=== PATIENT | female | born 1980 | race Caucasian/White ===

== ENCOUNTER 2018-11-30 09:10 | Inpatient (IN) | payer BC ==
[~2018-11-30 09:10] MED LIST: CITRIC ACID/SODIUM CITRATE 30 ML UNIT-DOSE CUP PO ONE
[2018-11-30 09:49] VITALS: BMI 27.5
[2018-11-30] MEDS ORDERED: ELECTROLYTE-148 SOLN 1,000 ML IV ONE (10:00)
[2018-11-30] MEDS ORDERED: CITRIC ACID/SODIUM CITRATE 30 ML UNIT-DOSE CUP PO ONE (10:00)
[2018-11-30] MEDS ORDERED: ELECTROLYTE-148 SOLN 1,000 ML IV SCH ×3 (10:10→11:00)
--- NOTE | 2018-11-30 10:31 | HP ---
Past Medical History - Primary Care Physician PCP:: Sayda Velasco - Admission Chief Complaint: 38yo P 1 @ 40 wks with h/o Prior c/section x 1, with no contructions, no VB, no LOF, +FM, presents for Repeat c/section History of Present Illness: 1. Prior c/section for 4kg fetus with h/o GBS sepsis 2. ASCUS/HPV pos for Colposcopy post- 3. Smoked prior to 4. AMA - Materni 21 wnl - 46XX 5. Personal h/o Brain trauma, patient is poor historian and difficult to assertain full scope of the problem, but she is fully coherent and has full capacity making decisions 6. GBS pos prophylaxis in case of ROM 7. 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 @ [employer] History of Recent Travel: No Home Medications - Allergies Allergies/Adverse Reactions: Allergies Allergy/AdvReac Type Severity Reaction Status Date / Time No Known Allergies Allergy Verified 11/30/18 09:31 Family Disease History - Family Disease History Family Disease History: Other: Grandparent (MGF - Pancreatic CA, MGM - Stomach CA) Review of Systems - Review of Systems Constitutional: reports: No Symptoms Eyes: reports: No Symptoms HENT: reports: No Symptoms Neck: reports: No Symptoms Cardiovascular: reports: No Symptoms Respiratory: reports: No Symptoms Gastrointestinal: reports: No Symptoms Genitourinary: reports: No Symptoms Breasts: reports: No Symptoms Reported Musculoskeletal: reports: No Symptoms Integumentary: reports: No Symptoms Neurological: reports: No Symptoms Endocrine: reports: No Symptoms Hematology/Lymphatic: reports: No Symptoms Psychiatric: reports: No Symptoms Pain Intensity: 0 Physical Exam - Maternity Constitutional: Yes: Well Nourished - Labs Lab Results: AB pos/RI/RPR-nr/HBsAg-neg/HIV - neg/ GCT-104
[2018-11-30] MEDS: ELECTROLYTE-148 SOLN 1,000 ML IV SCH ×2 (10:45→10:52)
[2018-11-30] MEDS ORDERED: TUBERCULIN PPD 5 TU/0.1ML SYRINGE (IN PATIENT USE ONLY) ID ONE (11:00)
[2018-11-30] MEDS ORDERED: OXYTOCIN 20 UNITS in 0.9% NS 40 UNIT/2,000 ML INFUS.BAG IV ONE (11:15)
[2018-11-30 11:17] LABS: ALBUMIN 2.9 g/dl (3.4-5.0); BILIRUBIN,TOTAL 0.4 mg/dL (0.2-1); BLOOD UREA NITROGEN 11.8 mg/dL (7-18); CALCIUM 8.4 mg/dL (8.5-10.1); CREATININE 0.7 mg/dL (0.55-1.3); TOT PROT 6.2 g/dl (6.4-8.2)
[2018-11-30] MEDS ORDERED: morphine SULFATE/PF 0.5 MG/ML (2cc Syringe - QUVA) ONE (11:32)
[2018-11-30] MEDS ORDERED: ceFAZolin SODIUM 1 GM VIAL ONE (11:32)
[2018-11-30] MEDS ORDERED: PHENYLEPHRINE HCL 10 MG/1 ML SINGLE DOSE VIAL ONE (11:32)
[2018-11-30] MEDS ORDERED: DEXAMETHASONE SOD PHOSPHATE 4 MG/1 ML VIAL ONE (12:29)
[2018-11-30] MEDS ORDERED: MIDAZOLAM HCL 2 MG/2 ML SINGLE DOSE VIAL ONE (12:35)
[2018-11-30] MEDS ORDERED: KETOROLAC TROMETHAMINE 30 MG/1 ML VIAL ONE (12:46)
[2018-11-30 13:11] LABS: VENOUS PC02 48.4 mmHg (41-51)
[2018-11-30 13:14] LABS: ARTERIAL BLOOD GAS PCO2 61.9 mmHg (35-45); ARTERIAL BLOOD GAS pH 7.25 (7.35-7.45); VENOUS PH 7.31 (7.31-7.41); VENOUS PO2 19.5 mmHg (30-40)
[2018-11-30 13:15] LABS: ARTERIAL BLD GAS O2 SATURATION 5.1 % (95-98); ARTERIAL BLOOD GAS BASE EXCESS -2.3 meq/l (-2-2)
[2018-11-30 13:17] LABS: ARTERIAL BLOOD GAS PO2 8.2 mmHg (80-105)
[2018-11-30] MEDS ORDERED: oxyCODONE HCL 5 MG TABLET PO PRN (13:17)
[2018-11-30] MEDS ORDERED: BENZOCAINE 28 GM HEMORRHOIDAL OINTMENT PR PRN (13:17)
[2018-11-30] MEDS ORDERED: diphenhydrAMINE HCL 25 MG CAPSULE (FP) PO PRN (13:17)
[2018-11-30] MEDS ORDERED: WITCH HAZEL 50% (TUCKS) 40 PAD/JAR PAD TP PRN (13:17)
[2018-11-30] MEDS ORDERED: BENZOCAINE 20% 57 GM BOTTLE TP PRN (13:17)
[2018-11-30] MEDS ORDERED: IBUPROFEN 800 MG/8 ML IJ IVPB PRN (13:17)
[2018-11-30] MEDS ORDERED: METHYLERGONOVINE MALEATE 0.2 MG/1 ML AMP IM PRN (13:17)
--- NOTE | 2018-11-30 13:24 | OP ---
Operative Note - Note: Operative Date: 11/30/18 Pre-Operative Diagnosis: 38yo P1 at 40weeks with h/o prior c/section, no spontaneous labor Operation: Repeat c/section Findings: Normal Tubes and ovaries Viable Female, APGARs 9/9, Wt. 9.2lb Neonatology at delivery Post-Operative Diagnosis: Same as Pre-op Surgeon: Sayda Velasco Bariatric Physician: Jay Russell Anesthesiologist/COMPUTER ARCHITECT: Claudia Grady Anesthesia: Spinal Estimated Blood Loss (mls): 400 Drains, Volume Out (mls): 200 Fluid Volume Replaced (mls): 1,200 Operative Report Dictated: Yes
--- NOTE | 2018-11-30 13:25 | PN ---
Delivery - Delivery Section: Repeat Type of Anesthesia: Spinal Episiotomy/Laceration: None EBL (cc): 400 Delivery, Single - [place] Feeding Plan Initial Plan: Exclusive throughout hospitalization
[2018-11-30] MEDS ORDERED: ONDANSETRON 4 MG/2 ML VIAL IVPUSH PRN (13:30)
[2018-11-30] MEDS ORDERED: OXYTOCIN 20 UNITS in 0.9% NS 20 UNIT/1,000 ML INFUS.BAG IV SCH (13:30)
[2018-11-30] MEDS ORDERED: ACETAMINOPHEN 1000 MG/100 ML VIAL (NON FORMULARY) IVPB PRN (13:31)
--- NOTE | 2018-11-30 16:28 | OP ---
DATE OF OPERATION: 11/30/2018 PREOPERATIVE DIAGNOSIS: A 38-year-old, para 1, at 40 weeks, with history of prior section and no spontaneous labor. OPERATION: Repeat section. FINDINGS: Normal tubes and ovaries bilaterally, viable female, Apgars 9 and 9, weight 9 pounds 2 ounces. Neonatology present at delivery. PREOPERATIVE DIAGNOSIS: A 38-year-old, para 1, at 40 weeks, with history of prior section and no spontaneous labor. SURGEON: Sayda Velasco MD VENTURE CAPITAL ANALYST: Jay Russell MD ANESTHESIOLOGIST: Claudia Grady MD ANESTHESIA: Spinal. DESCRIPTION OF THE OPERATIVE PROCEDURE: After ensuring informed consent, patient was brought to the operating room, and after spinal anesthesia, she was placed in dorsal supine position with left lateral tilt. Abdomen was prepped and draped in a sterile fashion. A Pfannenstiel skin incision in the same area of the prior incision was created with a scalpel and carried down to the level of fascia with Bovie cautery. Fascia was dissected bilaterally with Bovie cautery, with good visualization of underlying muscle. The fascia was dissected off the underlying rectus abdominis with Bovie cautery, split in the midline, and the peritoneum was entered with the scalpel, with good visualization of underlying organs. The peritoneum was entered with Metzenbaum scissors and stretched. Bladder was retracted with low edge of the [place]. Vesicouterine peritoneum was tented and dissected bilaterally with Metzenbaum scissors. Bladder was retracted with the lower edge of the [place]. Lower uterine segment incision was created with a scalpel and dissected bilaterally with bandage scissors. The infant's head was delivered atraumatically, as well as the rest of the 's body. Cord was clamped and cut. The was handed to awaiting manager intranet center medical director, Dr. Diehl. Cord was sent for cord gases. Subsequently placenta was delivered intact. Uterus was cleared of clots and debris and repaired with 0 Biosyn, with good visualization of other organs. Excellent hemostasis was achieved. The cervix was also opened with ring forceps to allow the lochia to escape. A 2nd layer of imbricated suturing was created with 0 Biosyn. Abdomen was irrigated. Excellent hemostasis was noted. Peritoneum was repaired with 0 Biosyn. Muscle was reapproximated at the midline with 0 Biosyn. The fascia was closed with 0 Vicryl in 1 running suture fashion. Subcutaneous stitches were created to reapproximate the subcutaneous tissue, and 4-0 Biosyn V-Loc was used to close the skin subcuticularly. Estimated blood loss 400 mL. Patient received 1200 mL of IV fluids and drained 200 mL of urine. Sponge and instrument count was correct x2. Patient was brought to the recovery room in stable condition and tolerated procedure very well. Jolie [id number]
[2018-11-30] MEDS ORDERED: DEXTROSE 5%-LACTATED RINGERS 1,000 ML IV SCH (21:30)
--- NOTE | 2018-12-01 07:15 | PN ---
HC Provider Note Provider Note: Anesthesia PostOp Note Pt seen s/p spinal for c/section Pt awake alert, no complaints Denies h/a, n/v, urinary retention Ambulating well, full motor and sensory return to b/l lower ext VSS no apparent anesthesia complications Ryan Deleon.
[2018-12-01 07:24] LABS: BASO % 0.4 % (0-2.0); EOS % 0.2 % (0-4.5); HEMATOCRIT 33.3 % (32.4-45.2); HEMOGLOBIN 10.9 GM/dL (10.7-15.3); LYMPH % 10.1 % (8-40); MCH 29.8 pg (25.7-33.7); MCHC 32.7 g/dl (32.0-36.0); MEAN CELL VOLUME 91.1 fl (80-96); MEAN PLT VOLUME 10.3 fl (7.5-11.1); MONO % 7.5 % (3.8-10.2); NEUT % 81.8 % (42.8-82.8); PLATELET COUNT 181 K/MM3 (134-434); RBC 3.65 M/mm3 (3.60-5.2); RDW 13.5 % (11.6-15.6); WHITE BLOOD COUNT 16.6 K/mm3 (4.0-10.0)
--- NOTE | 2018-12-01 08:02 | PN ---
Post Progress Note - Subjective Subjective: Patient without acute complaints. Reports tolerating oral intake without nausea or vomiting. Ambulating without dizziness. Denies fevers or chills. Pain well controlled with oral pain medication. Pumping/breast feeding without issue. Not assing flatus yet, no BM. Post Day: 1 Type of Delivery: Repeat C/S Vital Signs: Vital Signs Temperature 97.8 F 12/01/18 06:00 Pulse Rate 59 L 12/01/18 06:00 Respiratory Rate 18 12/01/18 06:00 Blood Pressure 113/58 L 12/01/18 06:00 O2 Sat by Pulse Oximetry (%) 97 11/30/18 14:30 Breast Exam: Yes: Soft Uterus: Yes: Fundus Firm Incision: Yes: Dressing dry and intact Abdomen/GI: Yes: Abdomen soft, Passing flatus Lochia: Yes: Rubra Lochia, amount: Small Extremities: Yes: Calves non-tender Perineum: Yes: Intact Activity: Ambulating Assessment/Plan POD#1 s/p repeat LTC/S doing well, stable, afebrile. Asymptomatic for anemia. Post op care reviewed. Continue routine care. Ambulation encouraged Advance diet as tolerated.
[2018-12-01] MEDS ORDERED: BISACODYL 10 MG SUPP.RECT PR PRN (13:18)
[2018-12-01] MEDS: oxyCODONE HCL 5 MG TABLET PO PRN (20:37)
[2018-12-01] MEDS: SIMETHICONE 80 MG TAB.CHEW (FP) PO PRN (20:37)
[2018-12-01] MEDS: IBUPROFEN 600 MG TABLET (FP) PO PRN (20:38)
[2018-12-02] MEDS: IBUPROFEN 600 MG TABLET (FP) PO PRN ×2 (08:12→17:03)
[2018-12-02] MEDS: oxyCODONE HCL 5 MG TABLET PO PRN ×2 (08:13→17:01)
[2018-12-02] MEDS: SIMETHICONE 80 MG TAB.CHEW (FP) PO PRN ×2 (08:14→17:01)
--- NOTE | 2018-12-02 09:20 | PN ---
Post Progress Note - Subjective Subjective: Patient without acute complaints. Reports tolerating oral intake without nausea or vomiting. Ambulating without dizziness. Denies fevers or chills. Pain well controlled with oral pain medication. without difficulty. No flatus yet. Post Day: 2 Type of Delivery: Repeat C/S Vital Signs: Vital Signs Temperature 98.0 F 12/01/18 20:52 Pulse Rate 75 12/01/18 20:52 Respiratory Rate 20 12/01/18 20:52 Blood Pressure 145/72 12/01/18 20:52 O2 Sat by Pulse Oximetry (%) 97 11/30/18 14:30 Breast Exam: Yes: Soft Uterus: Yes: Fundus Firm, Fundus below umbilicus Incision: Yes: Sutures intact. No: Redness, Oozing Abdomen/GI: Yes: Abdomen soft, Abdominal Distention (soft, mild), Tender (mild incisional), Tolerating PO Lochia: Yes: Rubra Lochia, amount: Small Extremities: Yes: Calves non-tender. No: Edema Activity: Ambulating - Labs Labs: CBC WBC 16.6 K/mm3 (4.0-10.0) H 12/01/18 06:30 RBC 3.65 M/mm3 (3.60-5.2) 12/01/18 06:30 Hgb 10.9 GM/dL (10.7-15.3) 12/01/18 06:30 Hct 33.3 % (32.4-45.2) 12/01/18 06:30 MCV 91.1 fl (80-96) 12/01/18 06:30 MCH 29.8 pg (25.7-33.7) 12/01/18 06:30 MCHC 32.7 g/dl (32.0-36.0) 12/01/18 06:30 RDW 13.5 % (11.6-15.6) 12/01/18 06:30 Plt Count 181 K/MM3 (134-434) 12/01/18 06:30 MPV 10.3 fl (7.5-11.1) 12/01/18 06:30 Absolute Neuts (auto) 13.6 K/mm3 (1.5-8.0) H 12/01/18 06:30 Neutrophils % 81.8 % (42.8-82.8) 12/01/18 06:30 Lymphocytes % 10.1 % (8-40) D 12/01/18 06:30 Monocytes % 7.5 % (3.8-10.2) 12/01/18 06:30 Eosinophils % 0.2 % (0-4.5) 12/01/18 06:30 Basophils % 0.4 % (0-2.0) 12/01/18 06:30 Nucleated RBC % 0 % (0-0) 12/01/18 06:30 Assessment/Plan 38yo POD # 2 s/p R CD, afebrile, vital signs stable, doing well 1. Continue routine postoperative care. 2. Encourage ambulation and incentive spirometer use 3. Continue oral pain medication 4. Anticipate discharge home postoperative day #3 or #4
[2018-12-02] MEDS ORDERED: SENNOSIDES/DOCUSATE COMBO (SENNA PLUS) TABLET (UD) PO PRN (22:00)
[2018-12-03] MEDS: oxyCODONE HCL 5 MG TABLET PO PRN (03:34)
[2018-12-03] MEDS: SIMETHICONE 80 MG TAB.CHEW (FP) PO PRN (03:34)
[2018-12-03] MEDS: IBUPROFEN 600 MG TABLET (FP) PO PRN (03:35)
--- NOTE | 2018-12-03 08:19 | PN ---
Progress Note (short form) - Note Progress Note: pod3 s/p repeat c/s , doing well, ambulating, passing gas CBC, BMP 11/30/18 09:28 Last Vital Signs Temp Pulse Resp BP Pulse Ox 97.8 F 66 20 133/77 97 12/02/18 20:19 12/02/18 20:19 12/02/18 20:19 12/02/18 20:19 11/30/18 14:30 abdomen soft, no distension , no cva incision dry, clean no calf tenderness plan d/c home, follow up office 1 week cbc today
--- NOTE | 2018-12-03 08:21 | DS ---
Physical Exam-BORE MILL OPERATOR FOR PLASTIC Vital Signs: Vital Signs Temperature 97.8 F 12/02/18 20:19 Pulse Rate 66 12/02/18 20:19 Respiratory Rate 20 12/02/18 20:19 Blood Pressure 133/77 12/02/18 20:19 O2 Sat by Pulse Oximetry (%) 97 11/30/18 14:30 Constitutional: Yes: Well Nourished, No Distress, Calm Eyes: Yes: WNL, Conjunctiva Clear, EOM Intact HENT: Yes: WNL, Atraumatic, Normocephalic Neck: Yes: WNL, Supple, Trachea Midline Cardiovascular: Yes: WNL, Regular Rate and Rhythm Respiratory: Yes: WNL, Regular, CTA Bilaterally Gastrointestinal: Yes: WNL ...Rectal Exam: Yes: WNL Renal/: Yes: WNL ....Post : Yes: Uterus firm, Uterus non-tender, Slight lochia rubra Breast(s): Yes: WNL Musculoskeletal: Yes: WNL Extremities: Yes: WNL Edema: LUE: Trace, RUE: Trace, LLE: Trace, RLE: Trace Integumentary: Yes: WNL Wound/Incision: Yes: Clean/Dry, Well Approximated, Sutures Intact Neurological: Yes: WNL, Alert, Oriented ...Motor Strength: WNL Psychiatric: Yes: WNL, Alert, Oriented Labs: CBC, BMP 11/30/18 09:28 Delivery - Delivery Section: Repeat, Low Flap Transverse Type of Anesthesia: Spinal Episiotomy/Laceration: None, Midline EBL (cc): 400 Delivery, Single - Stages of Labor Date of Delivery: 11/30/18 Time of Delivery: 12:29 Time Placenta Delivered: 12:30 Placenta: Yes: Expressed - Condition of Infant Braille Operator/Wiener Packer Present: Yes Name: Daryl Diehl Gender: Female Weight: 9 lb 2 oz Position: Right, OA Total Hours ROM (Hrs/Mins): 0/2 - 1 Minute Total Score: 9 5 Minutes Total Score: 9 - Feeding Plan Initial Plan: Exclusive throughout hospitalization Discharge Summary Reason For Visit: Procedures: Principal: repeat LST c/s Condition: Good - Instructions Diet, Activity, Other Instructions: regular diet, follow up office 1 week, if fever ,pain, heavy vaginal bleeding call Referrals: Sayda Velasco MD [Staff Physician] - Disposition: HOME - Home Medications Comprehensive Discharge Medication List: Ambulatory Orders Ibuprofen [Motrin -] 600 mg PO QID #28 tablet 12/02/18
[2018-12-03 08:37] LABS: BASO % 0.6 % (0-2.0); EOS % 0.9 % (0-4.5); HEMATOCRIT 31.2 % (32.4-45.2); HEMOGLOBIN 10.3 GM/dL (10.7-15.3); LYMPH % 15.6 % (8-40); MCH 30.3 pg (25.7-33.7); MEAN CELL VOLUME 91.9 fl (80-96); MEAN PLT VOLUME 10.2 fl (7.5-11.1); MONO % 7.2 % (3.8-10.2); NEUT % 75.7 % (42.8-82.8); PLATELET COUNT 186 K/MM3 (134-434); RBC 3.39 M/mm3 (3.60-5.2); RDW 13.9 % (11.6-15.6); WHITE BLOOD COUNT 10.6 K/mm3 (4.0-10.0)
--- NOTE | 2018-12-03 09:58 | PATH ---
Surgical Pathology Report Patient Name: SKYLAR KEANE [facility]. Rec. #: [id number] /Age/Gender: 1980 (Age: 38) / F Account: [id number] Location: [facility] OBS/CALCIMINER Taken: 11/30/2018 Received: 12/01/2018 Reported: 12/03/2018 Physicians: Sayda Velasco M.D. Specimen(s) Received PLACENTA Clinical History , previous 2011, history TBI 2005 Final Diagnosis PLACENTA, DELIVERY: FOCALLY DISRUPTED THIRD TRIMESTER PLACENTA WITH INTERVILLOUS FIBRIN DEPOSITION, PARA-MARGINALLY INSERTED THREE VESSEL UMBILICAL CORD AND UNREMARKABLE PLACENTAL MEMBRANES. Electronically Signed Arash Mclaughlin M.D. Gross Description The specimen is received fresh labeled placenta and is a 628 gram, 20.0 x 16.5 x 2.4 cm. placenta with attached membranes and umbilical cord. The attached membranes are crisostomo, translucent with focal opacities and insert marginally. The umbilical cord measures 17 cm. in length and averages 1.1 cm. in diameter. The cord inserts eccentrically, 1.5 cm. to the nearest margin. No true knots or strictures are identified. Cut surface of the umbilical cord reveals 3 vessels. The surface is gonzales-blue with minimal fibrin deposition and appropriate caliber vessels. The maternal surface is red-brown with focal defects. Sectioning reveals red-brown, spongy parenchyma. No lesions are identified. Healthcare Social Worker sections are submitted in three cassettes as follows: 1- membrane rolls and umbilical cord; 2-3- full thickness sections of placenta. /12/01/2018 saudi12/01/2018
[2018-12-03 10:36] VITALS: TEMP 97.7
[2018-12-03 10:40] VITALS: BP 130/80; PULSE 86
== END 2018-12-03 11:55 | disposition home or self-care (01) | DRG 788 ==
LOC: JLDR 09:10 → J3W 15:24
PROVIDERS: ADMIT Obstetrics & Gynecology; ATTEND Obstetrics & Gynecology
PROC: 10D00Z1 Extraction of Products of Conception, Low, Open Approach (ICD-10-PCS; principal; 2018-11-30)
DX: O34.219 Maternal care for unspecified type scar from previous cesarean delivery (principal); O48.0 Post-term pregnancy; N85.8 Other specified noninflammatory disorders of uterus; Z3A.40 40 weeks gestation of pregnancy; Z37.0 Single live birth
CPT/HCPCS: 36415; 36600; 80053; 82803; 85025; 86850; 86900; 86901; 88307-TC